=== PATIENT | female | born 1995 | race Caucasian/White ===

== ENCOUNTER 2016-06-28 18:28 | Emergency (ER) | payer MEDICAID ==
--- NOTE | 2016-06-28 18:50 | ER Document Report ---
ED Medical Screen (RME) - General Stated Complaint: POSSIBLE ABSCESS ON BUTTOCKS,EYE IRRITATION Mode of Arrival: Ambulatory Information source: Patient Notes: Patient presents to the emergency department with complaints of 2 abscesses one on her vaginal area one on her buttocks. Denies history of MRSA I have greeted and performed a rapid initial assessment of this patient. A comprehensive ED assessment and evaluation of the patient, analysis of test results and completion of the medical decision making process will be conducted by additional ED providers. TRAVEL OUTSIDE OF THE [place] IN LAST 30 DAYS: No - Related Data Allergies/Adverse Reactions: No Known Drug Allergies Allergy (Verified 01/20/12 21:16) Past Medical History Past Surgical History: Reports: Hx Oral Surgery - Tooth removed - Immunizations Immunizations up to date: Yes Hx Diphtheria, Pertussis, Tetanus Vaccination: Yes
[2016-06-28] MEDS ORDERED: LIDOCAINE 1% INJ-PF (10 MG/ML) 30 ML SDV ONE (21:10)
[2016-06-28] MEDS ORDERED: OXYCODONE-ACETAMINOPHEN 5-325 MG TABLET PO ONE (21:21)
--- NOTE | 2016-06-28 21:23 | ER Document Report ---
ED Skin Rash/Insect Bite/Abscs - General Chief Complaint: Abscess Stated Complaint: POSSIBLE ABSCESS ON BUTTOCKS,EYE IRRITATION Mode of Arrival: Ambulatory Information source: Patient Notes: Patient is a 21-year-old female who presents to the ER today for abscess to her vagina x 4 days that is worsening. She states that she tried warm compresses which has not helped. She denies any history of abscesses or MRSA. She states that it has been getting larger, more painful and swollen but denies any drainage from the area. She denies any fevers or chills. She also states that this morning she woke up with bilateral red eyes, worse in the right, itching, watering and yellow discharge. TRAVEL OUTSIDE OF THE [place] IN LAST 30 DAYS: No - Related Data Allergies/Adverse Reactions: No Known Drug Allergies Allergy (Verified 06/28/16 18:59) Past Medical History - General Information source: Patient - Social History Smoking Status: Never Smoker Chew tobacco use (# tins/day): No Frequency of alcohol use: None Drug Abuse: None Family History: Reviewed & Not Pertinent Patient has suicidal ideation: No Patient has homicidal ideation: No Renal/ Medical History: Denies: Hx Peritoneal Dialysis Past Surgical History: Reports: Hx Oral Surgery - Tooth removed - Immunizations Immunizations up to date: Yes Hx Diphtheria, Pertussis, Tetanus Vaccination: Yes Review of Systems - Review of Systems Constitutional: No symptoms reported EENT: See HPI Cardiovascular: No symptoms reported Respiratory: No symptoms reported Gastrointestinal: No symptoms reported Genitourinary: No symptoms reported Female Genitourinary: No symptoms reported Musculoskeletal: No symptoms reported Skin: See HPI Hematologic/Lymphatic: No symptoms reported Neurological/Psychological: No symptoms reported Physical Exam - Vital signs Vitals: Temp Pulse Resp BP 97.6 F 89 16 114/70 06/28/16 18:55 06/28/16 18:55 06/28/16 18:55 06/28/16 18:55 - Notes Notes: PHYSICAL EXAMINATION: GENERAL: Obviously uncomfortable, but in no acute distress. HEAD: Atraumatic, normocephalic. EYES: Pupils equal round and reactive to light, extraocular movements intact, sclera anicteric, conjunctiva erythematous bilaterally, watering ENT: ear canals without erythema or foreign body, TMs pearly storey with good bony landmarks, nares patent, oropharynx clear without exudates. Moist mucous membranes. NECK: Normal range of motion, supple without lymphadenopathy LUNGS: CTAB and equal. No wheezes rales or rhonchi. HEART: Regular rate and rhythm without murmurs EXTREMITIES: Normal range of motion, no pitting edema. No cyanosis. NEUROLOGICAL: Cranial nerves grossly intact. Normal sensory/motor exams. PSYCH: Normal mood, normal affect. SKIN: Warm, Dry, normal turgor, large, 4 cm x 2 cm abscess to the right labia majora, extremely tender to palpation, erythematous, indurated Course - Re-evaluation Re-evalutation: 06/28/16 23:28 Abscess was incised and drained successfully. Patient was placed on Bactrim and given antibiotic eye drops from the emergency department which will be all she needs for her regimen 7 days. - Vital Signs Vital signs: Temp Pulse Resp BP Pulse Ox 97.6 F 89 16 114/70 98 06/28/16 18:55 06/28/16 18:55 06/28/16 18:55 06/28/16 18:55 06/28/16 18:57 Discharge - Discharge Clinical Impression: Labial abscess Conjunctivitis Qualifiers: Conjunctivitis type: acute Acute conjunctivitis type: unspecified Laterality: bilateral Qualified Code(s): H10.33 - Unspecified acute conjunctivitis, bilateral Condition: Stable Disposition: HOME, SELF-CARE Instructions: Abscess ([facility]), Post Incision and Drainage, Trimethoprim-Sulfa ( [facility]) Additional Instructions: Please use the eyedrops, both eyes, 1 drop in each eye every 3 hours while awake for 7 days. Return immediately for any new or worsening symptoms. Follow up with primary care provider, call tomorrow to make followup appointment. Prescriptions: Sulfamethoxazole/Trimethoprim [Bactrim Ds Tablet] 1 each PO BID #20 tablet Forms: Return to Work
[2016-06-28] MEDS ORDERED: SULFAMETHOXAZOLE/TRIMETHOPRIM 800-160 MG TABLET PO ONE (22:24)
[2016-06-28] MEDS ORDERED: LIDOCAINE 4%/TETRACAINE 0.5%/EPI 0.18% 5 ML TOPICAL SOLN TOP ONE (22:24)
[2016-06-28] MEDS ORDERED: POLYMYXIN B SULFATE/TMP OPH SOLN 10 ML OU ONE (23:26)
[2016-06-28] MEDS ORDERED: HYDROCODONE/ACETAMINOPHEN 5-325 MG 6 TAB/DSPK PO PRN (23:30)
[2016-06-29 00:30] VITALS: BP 135/84
[2016-06-29] MEDS ORDERED: POLYMYXIN B SULFATE/TMP OPH SOLN 10 ML ONE (00:37)
== END 2016-06-29 00:44 | disposition home or self-care (01) ==
LOC: ER 18:28
PROC: 0H9AXZZ Drainage of Inguinal Skin, External Approach (ICD-10-PCS; principal; 2016-06-28)
DX: N76.4 Abscess of vulva (principal); H10.33 Unspecified acute conjunctivitis, bilateral
CPT/HCPCS: 99283; 56405; J3490 ×3

== ENCOUNTER 2016-09-13 08:08 | Emergency (ER) | payer OTHER, MEDICAID ==
[2016-09-13] MEDS ORDERED: NORMAL SALINE 1000 ML 1,000 ML IV ONE (09:00)
[2016-09-13 11:32] LABS: APPEARANCE,URINE CLEAR; BILIRUBIN,URINE NEGATIVE (NEGATIVE); GLUCOSE, URINE NEGATIVE (NEGATIVE); KETONES,URINE NEGATIVE (NEGATIVE); LEUKOCYTE ESTERASE,URINE NEGATIVE (NEGATIVE); NITRITE,URINE NEGATIVE (NEGATIVE); PROTEIN,URINE NEGATIVE (NEGATIVE); URINE SPECIFIC GRAVITY 1.001; UROBILINOGEN,URINE NEGATIVE mg/dL (<2.0)
[2016-09-13 11:53] LABS: URINE BARBITURATES SCREEN NEGATIVE; URINE METHADONE SCREEN NEGATIVE; URINE OPIATES LOW UNCONFIRMED POSITIVE; URINE PHENCYCLIDINE SCREEN NEGATIVE
[2016-09-13] MEDS ORDERED: ACETAMINOPHEN 325 MG TABLET PO ONE (11:54)
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
[2016-09-13 12:19] VITALS: BP 112/74
--- NOTE | 2016-09-13 22:08 | EKG REPORT ---
SEVERITY:- BORDERLINE ECG - SINUS RHYTHM PROBABLE LEFT ATRIAL ABNORMALITY : Confirmed by: Isabel Rockwell MD 13-Sep-2016 22:07:39
--- NOTE | 2016-09-14 15:34 | EKG REPORT ---
SEVERITY:- NORMAL ECG - SINUS RHYTHM : Confirmed by: Isabel Rockwell MD 14-Sep-2016 15:33:59
--- NOTE | 2016-09-14 15:34 | EKG REPORT ---
SEVERITY:- BORDERLINE ECG - SINUS RHYTHM PROBABLE LEFT ATRIAL ABNORMALITY : Confirmed by: Isabel Rockwell MD 14-Sep-2016 15:34:06
== END 2016-09-13 12:19 | disposition home or self-care (01) ==
LOC: ER 08:08
DX: S20.219A Contusion of unspecified front wall of thorax, initial encounter (principal); R07.9 Chest pain, unspecified; V43.52XA Car driver injured in collision with other type car in traffic accident, initial encounter; F17.200 Nicotine dependence, unspecified, uncomplicated
CPT/HCPCS: 71020; 80307; 81001; 81025; 93005; 93010; 99284

== ENCOUNTER 2018-04-05 06:21 | Emergency (ER) | payer MEDICAID, OTHER ==
[2018-04-05] MEDS ORDERED: NORMAL SALINE 1000 ML 1,000 ML IV ONE ×2 (06:57→08:57)
[2018-04-05] MEDS ORDERED: CLINDAMYCIN 600 MG/D5W RTU 600 MG/50 ML RTUPB IV ONE (06:57)
[2018-04-05] MEDS ORDERED: KETOROLAC TROMETHAMINE INJ/PF 30 MG/1 ML SDV IV ONE (06:58)
--- NOTE | 2018-04-05 07:05 | ER Document Report ---
ED Head/Face/Scalp Injury - General Mode of Arrival: Medic Information source: Patient TRAVEL OUTSIDE OF THE [place] IN LAST 30 DAYS: No <SHELIA EMERY - Last Filed: 04/05/18 07:18> <JOHN WOODS - Last Filed: 04/05/18 15:57> - General Chief Complaint: Facial Swelling Stated Complaint: POSSIBLE MOUTH ABSCESS Time Seen by Provider: 04/05/18 06:50 Notes: 22-year-old female who presents to the emergency department today with complaints of left-sided facial swelling for 1 week. Patient states it started off mildly and has progressed since onset. Patient states there seems to be a "hardness" over her left cheek. Patient reports that she was able to get pus to drain into her mouth by pressing on her cheek externally. Patient reports that she expressed enough to be able to scoop it out with a Q-tip. (SHELIA EMERY) - Related Data Allergies/Adverse Reactions: No Known Drug Allergies Allergy (Verified 04/05/18 07:46) Past Medical History - General Information source: Patient - Social History Smoking Status: Current Every Day Smoker Cigarette use (# per day): Yes Frequency of alcohol use: Occasional Drug Abuse: None Family History: Reviewed & Not Pertinent Patient has suicidal ideation: No Patient has homicidal ideation: No Renal/ Medical History: Denies: Hx Peritoneal Dialysis Past Surgical History: Reports: Hx Oral Surgery - Tooth removed - Immunizations Immunizations up to date: Yes Hx Diphtheria, Pertussis, Tetanus Vaccination: Yes <SHELIA EMERY - Last Filed: 04/05/18 07:18> Review of Systems - Review of Systems Constitutional: No symptoms reported EENT: See HPI, Other - left sided facial swelling Cardiovascular: No symptoms reported Respiratory: No symptoms reported Gastrointestinal: No symptoms reported Genitourinary: No symptoms reported Female Genitourinary: No symptoms reported Musculoskeletal: No symptoms reported Skin: No symptoms reported Hematologic/Lymphatic: No symptoms reported Neurological/Psychological: No symptoms reported -: Yes All other systems reviewed and negative <SHELIA EMERY - Last Filed: 04/05/18 07:18> Physical Exam <SHELIA EMERY - Last Filed: 04/05/18 07:18> <JOHN WOODS - Last Filed: 04/05/18 15:57> - Vital signs Vitals: Temp Pulse Resp BP Pulse Ox 99.7 F 125 H 18 131/80 H 96 04/05/18 06:29 04/05/18 06:29 04/05/18 06:29 04/05/18 06:29 04/05/18 06:29 - Notes Notes: Physical Exam: General: Alert, appears uncomfortable. HEENT: Normocephalic. Atraumatic. PERRL. Extraocular movements intact. Oropharynx clear. Extensive left sided facial swelling causing facial swelling up to the level of the eye. No pus can be expressed in mouth with external palpation. Dried cracking skin on crease of lip on the left. Teeth are in fair condition, no sign of gingival abscess. No posterior oropharynx swelling, airway patent. Neck: Supple. Non-tender. Respiratory: No respiratory distress. Clear and equal breath sounds bilaterally. Cardiovascular: Tachycardic, regular rhythm. Abdominal: Normal Inspection. Non-tender. No distension. Normal Bowel Sounds. Back: Non-tender. No deformity or step off. Extremities: Moves all four extremities. Upper extremities: Normal inspection. Normal ROM. Lower extremities: Normal inspection. No edema. Normal ROM. Neurological: Normal cognition. AAOx4. Normal speech. Psychological: Normal affect. Normal Mood. Skin: see above (SHELIA EMERY) Course <SHELIA EMERY - Last Filed: 04/05/18 07:18> - Laboratory Result Diagrams: 04/05/18 07:15 04/05/18 07:15 - Diagnostic Test Radiology reviewed: Image reviewed, Reports reviewed - CT scan shows edema/ inflammation in the subcutaneous fatty tissues in the left maxillary region extending to the lower eyelid and involving the upper lip. There are no abnormal fluid collections or discrete abscess visualized. There is chronic left maxillary sinus disease without fluid levels. There is an apparent nasal septal perforation. <JOHN WOODS - Last Filed: 04/05/18 15:57> - Re-evaluation Re-evalutation: 04/05/18 10:[address] report, along with the physical exam and the history suggests that the swelling is probably much worse than it would have been because of the amount of squeezing that the patient has done trying to force pus out of the face tissues. (JOHN WOODS) - Vital Signs Vital signs: Temp Pulse Resp BP Pulse Ox 98 F 87 15 107/63 97 04/05/18 10:02 04/05/18 10:02 04/05/18 10:02 04/05/18 10:02 04/05/18 10:02 - Laboratory Laboratory results interpreted by me: 04/05/18 04/05/18 04/05/18 07:15 07:15 08:22 WBC 11.1 H Hgb 11.7 L Hct 34.5 L Absolute Neutrophils 8.4 H Chloride 97 L Carbon Dioxide 31 H Glucose 113 H AST 41 H Alkaline Phosphatase 149 H Urine Protein 30 H Urine Blood SMALL H Urine Bilirubin SMALL H Urine Urobilinogen 4.0 H Discharge <SHELIA EMERY - Last Filed: 04/05/18 07:18> <JOHN WOODS - Last Filed: 04/05/18 15:57> - Discharge Clinical Impression: Cellulitis of face Condition: Stable Disposition: HOME, SELF-CARE Additional Instructions: Cellulitis You have an infection of your skin and underlying soft tissues called cellulitis. This is due to bacteria, which can enter through any break in the skin, or even through an irritated hair follicle. Untreated, cellulitis will usually worsen. Antibiotics are required. Usually, warm packs or warm soaks, and elevation of the infected area are recommended. You should start getting better within 24 to 36 hours. Most infections respond quickly to the right medication. Follow-up care is important, however, to check for abscess (boil) formation, unsuspected foreign body, or resistant infection. If you develop fever, chills, or if the area of infection is becoming rapidly more swollen or painful, call the doctor at once. Take the antibiotics as prescribed. Drink lots of fluids today. Use frequent applications of moist heat or warm soaks to your face. Avoid squeezing the involved facial tissues. Take Tylenol and ibuprofen for pain and inflammation. Try to rest and sleep in a sitting up or semi-elevated position. If you do not have a recliner type chair, then use several pillows. Follow-up with a local primary care provider in the next few days for recheck. RETURN TO THE EMERGENCY ROOM IF ANY NEW OR WORSENING SYMPTOMS. Prescriptions: Clindamycin HCl 300 mg PO QID #28 capsule Referrals: ENRIKE WEISS PA-C [Primary Care Provider] - Follow up in 3-5 days Scribe Attestation: 04/05/18 08:58 I personally performed the services described in the documentation, reviewed and edited the documentation which was dictated to the scribe in my presence, and it accurately records my words and actions. (JOHN WOODS) Scribe Documentation - Scribe Written by Ady:: Ady Reese, 04/05/2018 0724 acting as scribe for :: Lesa <SHELIA EMERY - Last Filed: 04/05/18 07:18>
[2018-04-05 07:43] LABS: ABSOLUTE BASOPHILS # (AUTO) 0.1 10^3/uL (0.0-0.2); ABSOLUTE EOSINOPHILS # (AUTO) 0.1 10^3/uL (0.0-0.6); ABSOLUTE LYMPHOCYTES (AUTO) 1.6 10^3/uL (0.5-4.7); ABSOLUTE NEUT (AUTO) 8.4 10^3/uL (1.7-8.2); BASOPHILS % (AUTO) 0.5 % (0-2); EOSINOPHILS % (AUTO) 1.3 % (0-6); HEMATOCRIT 34.5 % (36.0-47.0); HEMOGLOBIN 11.7 g/dL (12.0-15.5); MEAN CORPUSCULAR HEMOGLOBIN 29.4 pg (27.0-33.4); MEAN CORPUSCULAR VOLUME 87 fl (80-97); PLATELET COUNT 291 10^3/uL (150-450); RED BLOOD COUNT 3.99 10^6/uL (3.72-5.28); RED CELL DISTRIBUTION WIDTH 13.1 % (11.5-14.0); SEGMENTED NEUTROPHILS % (AUTO) 75.2 % (42-78); TOTAL CELLS COUNTED % (AUTO) 100 %; WHITE BLOOD COUNT 11.1 10^3/uL (4.0-10.5)
[2018-04-05 08:02] LABS: ALANINE AMINOTRANSFERASE 36 U/L (9-52); ALBUMIN 4.3 g/dL (3.5-5.0); ALKALINE PHOSPHATASE 149 U/L (38-126); ANION GAP 12 (5-19); ASPARTATE AMINO TRANSFERASE 41 U/L (14-36); BILIRUBIN,DIRECT 0.4 mg/dL (0.0-0.4); BLOOD UREA NITROGEN 10 mg/dL (7-20); CALCIUM 9.4 mg/dL (8.4-10.2); CARBON DIOXIDE 31 mmol/L (22-30); CHLORIDE 97 mmol/L (98-107); GLUCOSE 113 mg/dL (75-110); POTASSIUM 3.9 mmol/L (3.6-5.0); SODIUM 139.5 mmol/L (137-145); TOTAL PROTEIN 7.9 g/dL (6.3-8.2)
[2018-04-05 08:46] LABS: APPEARANCE,URINE CLOUDY; BILIRUBIN,URINE SMALL (NEGATIVE); COLOR,URINE YELLOW; GLUCOSE, URINE NEGATIVE (NEGATIVE); KETONES,URINE NEGATIVE (NEGATIVE); LEUKOCYTE ESTERASE,URINE NEGATIVE (NEGATIVE); NITRITE,URINE NEGATIVE (NEGATIVE); PROTEIN,URINE 30 mg/dL (NEGATIVE); URINE SPECIFIC GRAVITY 1.033
--- NOTE | 2018-04-05 09:26 | RADIOLOGY REPORT (SQ) ---
EXAM DESCRIPTION: CT FACIAL AREA WITH COMPLETED DATE/TIME: 04/05/2018 8:41 am REASON FOR STUDY: Left facial swelling COMPARISON: None. TECHNIQUE: Post contrast images through the facial bones and orbits windowed for bone and soft tissu e. Additional coronal and sagittal reconstructed images reviewed. All images stored on PACS. All CT scanners at this facility use dose modulation, iterative reconstruction, and/or weight based d osing when appropriate to reduce radiation dose to as low as reasonably achievable (ALARA). [facility]: Dose Right [facility]: CareDose [facility]: Dose Right [facility]: Teradose 4D [facility]: SecureAlert CONTRAST TYPE AND DOSE: contrast/concentration: Isovue 350.00 mg/ml; Total Contrast Delivered: 75.0 ml; Total Saline Delivered: 55.0 ml RENAL FUNCTION: None required. The patient is less than 50 years old. RADIATION DOSE: CT Rad equipment meets quality standard of care and radiation dose reduction techniq ues were employed. CTDIvol: 30.4 mGy. DLP: 648 mGy-cm. . LIMITATIONS: None. FINDINGS: FACIAL BONES: No fracture or bone lesion. ORBITS: Intact. No fracture. Symmetric intact globes and retroorbital soft tissues. PARANASAL SINUSES: Mucous membrane thickening and nodularity in the left maxillary sinus. Otherwise clear. No fluid levels. Defect in the septum. SOFT TISSUES: Edema/ inflammation in the subcutaneous fatty tissues in the left maxillary region exte nding to the lower eyelid and also involving the upper lip. No abnormal fluid collections. INFERIOR BRAIN: Limited view. No acute findings. OTHER: No other significant finding. IMPRESSION: 1. EDEMA/INFLAMMATION IN THE LEFT FACIAL SOFT TISSUES DESCRIBED. NO DISCRETE ABSCESS VISUALIZED. 2. APPARENT NASAL SEPTUM PERFORATION. 3. CHRONIC LEFT MAXILLARY SINUS DISEASE. NO FLUID LEVELS. TECHNICAL DOCUMENTATION: JOB ID: [id number] Quality ID # [id number]: Final reports with documentation of one or more dose reduction techniques (e.g., Au tomated exposure control, adjustment of the mA and/or kV according to patient size, use of iterative reconstruction technique) 2010 [employer]- All Rights Reserved Reading location - IP/workstation name: [facility]
[2018-04-05 10:02] VITALS: BP 107/63
== END 2018-04-05 10:40 | disposition home or self-care (01) ==
LOC: ER 06:21
DX: L03.211 Cellulitis of face (principal); R22.0 Localized swelling, mass and lump, head; F17.210 Nicotine dependence, cigarettes, uncomplicated
CPT/HCPCS: 99284; 96361; 96375; 96365; 96366; 36415; 87040; 84703; 85025; 80053; 81001; 70487; J1885; J7030